=== PATIENT | male | born 1990 | race Caucasian/White ===

== ENCOUNTER 2021-01-24 10:49 | Emergency (ER) | payer BC, SELFPAY ==
--- NOTE | ~2021-01-24 | XR_ITS ---
EXAMINATION: XR chest 1V portable DATE: 01/24/2021 15:10 INDICATION: Chest pain. TECHNIQUE: A single frontal view of the chest was obtained. COMPARISON: None. FINDINGS: Calcified right lung nodules and calcified right hilar lymph nodes are consistent with old granulomatous disease. No pleural effusion or pneumothorax. The heart size is normal. IMPRESSION: 1. No acute cardiopulmonary disease. Reviewed, dictated and finalized at location A.
[2021-01-24 10:58] VITALS: BP 169/99; PULSE 107; RESP 14; TEMP 36.3; O2SAT 99
[2021-01-24 12:41] VITALS: BP 179/99; PULSE 114; RESP 18; O2SAT 98
[2021-01-24] MEDS: LORazepam INJ (*CRX) 2 MG/ML VIAL IV PUSH (14:00)
[2021-01-24] MEDS: HALOPERIDOL LACTATE 5 MG/ML VIAL 10 MG IV PUSH ×2 (14:00→20:38)
--- NOTE | 2021-01-24 14:01 | PC.NURSE ---
Unable to scan patient/meds for administration due to computer error.
--- NOTE | 2021-01-24 14:10 | ED.PSYCH ---
HPI - Psych General Chief Complaint: Psychiatric Symptoms <Pancho Peacock MD - Last Filed: 01/29/21 11:20> Stated Complaint: manic, anxious, pain all over <Pancho Peacock MD - Last Filed: 01/29/21 11:20> Time Seen by Provider: 01/24/21 13:07 <Pancho Peacock MD - Last Filed: 01/29/21 11:20> Source: patient <Pancho Peacock MD - Last Filed: 01/29/21 11:20> Mode of arrival: EMS <Pancho Peacock MD - Last Filed: 01/29/21 11:20> Limitations: clinical condition <Pancho Peacock MD - Last Filed: 01/29/21 11:20> History of Present Illness HPI Narrative: 30-year-old male Brought in by EMS for psych eval Apparently walked into police station and was behaving oddly He does not provide a very coherent history and intermittently seems to be very anxious and paranoid He tells me he takes Seroquel 100 mg a day and Haldol at an unknown dose and gabapentin totaling 900 mg a day which are prescribed by a physician that he knows as but does not care to know more than that, who he sees at his home which is either in [place] or someplace else His psych diagnoses are PTSD and anxiety and chronic pain due to a leg fracture Patient tells me that he decided to go on vacation but in looking at his prescriptions saw that there was something in the precautions about not operating heavy machinery and he was concerned that he would be in trouble if he was pulled over by the police who he does not trust so he stopped taking them It is unclear how long he has been off those meds He complains of things swimming around and a lot going on in his head, not sleeping for 4 nights, and total body pain He denies SI or HI He smokes medical marijuana and mentions that he is pleased that [place] he does not even need a medical card He drinks but will not say how much and uses no other drugs After discussing the possibility of restarting his Seroquel and Haldol and seeing if that calm things down for him he became quite agitated and aggressive, security had to be summoned, ultimately we were able to place an IV and he received 10 and 2 <Pancho Peacock MD - Last Filed: 01/29/21 11:20> Related Data Allergies/Adverse Reactions: Allergies Allergy/AdvReac Type Severity Reaction Status Date / Time cephalexin [From Keflex] Allergy Swelling Verified 01/24/21 20:38 <Pancho Peacock MD - Last Filed: 01/29/21 11:20> Review of Systems Review of Systems: ROS unobtainable: Yes unobtainable due to mental status <Pancho Peacock MD - Last Filed: 01/29/21 11:20> [facility] Social History Social History: Social History (Updated 01/24/21 @ 14:26 by Pancho Peacock MD) Alcohol intake: current Substance use type: marijuana <Pancho Peacock MD - Last Filed: 01/29/21 11:20> Exam Const: General: cooperative and alert <Pancho Peacokc MD - Last Filed: 01/29/21 11:20> Limitations: altered mental status and behavioral limitations <Pancho Peacock MD - Last Filed: 01/29/21 11:20> HENMT: Head: normal to inspection, normocephalic and atraumatic <Pancho Peacock MD - Last Filed: 01/29/21 11:20> Ears: external ears normal <Pancho Peacock MD - Last Filed: 01/29/21 11:20> General nose exam: no epistaxis <Pancho Peacock MD - Last Filed: 01/29/21 11:20> Eyes: Conjunctivae: conjunctivae normal <Pancho Peacock MD - Last Filed: 01/29/21 11:20> EOM: EOMs intact bilaterally <Pancho Peacock MD - Last Filed: 01/29/21 11:20> Neck: Neck: normal visual inspection, supple and no JVD <Pancho Peacock MD - Last Filed: 01/29/21 11:20> Resp: Effort & Inspection: normal respiratory effort <Pancho Peacock MD - Last Filed: 01/29/21 11:20> Auscultation: clear to auscultation bilaterally and other (BS =) <Pancho Peacock MD - Last Filed: 01/29/21 11:20> Cardio: Rate: regular rate <Pancho Peacock MD - Last Filed: 01/29/21 11:20> Rhythm: regular rhythm <Pancho Peacock MD - Last Filed: 01/29/21 11:20> Heart sounds: no murmurs
[2021-01-24 14:13] LABS: Basophils Absolute Auto 0.1 K/mm3 (0.0-0.1); Basophils Percent Auto 0.8 % (0.2-1.2); Eosinophils Percent Auto 0.2 % (0-4.4); Hematocrit 47.7 % (42.0-52.0); Hemoglobin 16.6 g/dL (14.0-18.0); Immature Granulocyte Absolute 0.04 K/mm3 (0.00-0.031); Immature Granulocyte Percent A 0.3 % (0-0.5); Lymphocytes Absolute Auto 1.88 K/mm3 (0.9-3.2); Lymphocytes Percent Auto 14.1 % (18.3-44.2); Mean Corpuscular HGB Conc 34.8 g/dl (32-36); Mean Corpuscular Hemoglobin 32.4 pg (26-34); Mean Corpuscular Volume 93.2 fl (80-100); Mean Platelet Volume 10.8 fl (7.4-10.4); Monocytes Absolute Auto 1.3 K/mm3 (0.1-0.6); Monocytes Percent Auto 9.8 % (2.6-8.5); Neutrophils Percent Auto 74.8 % (45.5-73.1); Platelet Count Result 251 k/mm3 (150-375); Red Blood Count 5.12 M/mm3 (4.6-6.20); Red Cell Distribution Width 13.6 % (11.5-14.5); White Blood Count 13.3 K/mm3 (4.5-10.0)
[2021-01-24 14:30] LABS: Ethanol < 10 mg/dL (<10)
[2021-01-24] MEDS: QUEtiapine FUMARATE XR 50 MG TAB.ER.24H 150 MG PO (14:57)
[2021-01-24 16:17] LABS: Add Urine Microscopic? YES; Appearance Urine Cloudy (Clear); Bilirubin Urine Negative (Negative); Blood Urine Negative (Negative); Color Urine Amber (Yellow); Glucose Urine UA Negative (Negative); Ketones Urine Negative (Negative); Leukocyte Esterase Ur Negative LEU/UL (Negative); Mucus Urine Few /lpf; Nitrate Urine Negative (Negative); Protein Urine 1+ mg/dL (Negative); Specific Grav Ur 1.019 (1.001-1.035); Squamous Epithelial Cell Urine Rare /hpf (Few)
[2021-01-24 16:30] LABS: Amphetamine Screen Urine Negative (Negative); Barbiturate Screen Urine Negative (Negative); Benzodiazepines Screen Urine Negative (Negative); Cannabinoid Screen Urine Positive (Negative); Cocaine Screen Urine Negative (Negative); Methadone Screen Urine Negative (Negative); Opiate Screen Urine Negative (Negative); Phencyclidine Screen Urine Negative (Negative)
[2021-01-24 16:36] LABS: EDCOVIDSCREEN Negative (Negative)
[2021-01-24 16:42] LABS: Alanine Aminotransferase 37 U/L (4-50); Albumin Level 3.9 g/dL (3.5-5.1); Alkaline Phosphatase 62 U/L (38-126); Anion Gap 7 mmol/L (8-16); Aspartate Amino Transferase 39 U/L (17-59); Bilirubin,Total 0.8 mg/dL (0.2-1.3); Blood Urea Nitrogen 7 mg/dL (9-20); Calcium 9.1 mg/dL (8.4-10.2); Carbon Dioxide 25 mmol/L (22-30); Chloride 105 mmol/L (98-107); Creatine Kinase 224 U/L (55-170); Estimated CRCL calculation 221 ml/min; Estimated Glomerular Filt Rate > 60; Glucose 102 mg/dL (65-110); Potassium 3.9 mmol/L (3.4-5.0); Sodium 137 mmol/L (137-145)
--- NOTE | 2021-01-24 20:15 | PC.NURSE ---
Attempted to update patient of status per his request, patient became very agitated and demanded to talk to the doctor and demanding to be transferred or sent home. Doctor informed of patient request to speak to him and patient came to the desk before doctor could go to the room with this nurse. Patient began yelling at the doctor and behavior became agressive. After asking patient to return to his room and calm down patient put his shoes on and was walking out the doors, patient continued to yell at staff, security arrival and patient did go back to his room after the doctor and security were walking him back. Matilda BLACKWELL encouraged the patient to get back in his bed and he did. Orders received per Dr. Peacock for haldol and pt was medicated for agitation and placed in hard restraints. Security remained at bedside.
--- NOTE | 2021-01-24 20:30 | PC.NURSE ---
Called [place] [employer] per DR. Peacock. PT yelling and screaming, cursing at staff at this time.
--- NOTE | 2021-01-24 23:30 | PC.NURSE ---
Assuming care of pt. Pt resting calmly restraints taken off. Pt apologizing for his previous behavior.
[2021-01-24 23:40] VITALS: BP 132/91; PULSE 92; RESP 18; O2SAT 98
[2021-01-25 02:25] VITALS: BP 127/83; PULSE 86; RESP 16; O2SAT 99
--- NOTE | 2021-01-25 04:38 | PC.NURSE ---
PT awake requesting food, pt requesting to be discharged at this time. Pt worried about getting hurt or hurting someone pt does not want anyone to get hurt. RN spoke with patient that no one wants to hurt him we only want him to get help. Pt is worried he will get lost in his head and not know what he is doing. Rn discussed with pt him staying and being transferred to another facility. Pt wants to get treatment when he goes home. RN discussed with pt that we can not discharge him without him being seen evaluated at a psych facility. Pt willing to stay a little longer and be transferred for treatment.
--- NOTE | 2021-01-25 04:46 | PC.NURSE ---
Voluntary paper work and copy of chart faxed to [facility] intake.
--- NOTE | 2021-01-25 06:04 | PC.NURSE ---
[facility] called they are accepting pt they need voluntary paperwork filled out again and facesheet sent to them and a nurse from their floor will call to get report.
--- NOTE | 2021-01-25 06:16 | PC.NURSE ---
Pt request RN to take IV out. RN did take IV out at this time.
[2021-01-25 06:17] VITALS: BP 140/85; PULSE 97; RESP 18; O2SAT 95
--- NOTE | 2021-01-25 06:17 | PC.NURSE ---
[facility]I faxed additional paperwork to [facility].
[2021-01-25] MEDS: hydrOXYzine HCL 25 MG TABLET PO (08:23)
--- NOTE | 2021-01-25 08:28 | PC.NURSE ---
After pt ate breakfast, he got dressed and stated that he wanted to go home. States that he has to take care of his dog and doesn't want to be admitted. States he feels better after the medicine he received here and doesn't feel like he needs to be admitted. 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 Pt with slightly pressured speech, endorses feeling anxious. RN explained that if he is wanted to go that Crisis would have to clear him, that we cannot just discharge him. Pt offered oral anxiety medication and agreed to take that while he waits to be re-evaluated. Pt A&Ox4, denies SI/HI, follows commands. Pt fidgety. RN asked if pt was to leave today if he had his medications at home to help prevent him from needing to be admitted. Pt reports disinterest in his medications, states it clearly says on the bottle not to drive or operate heavy machinery, and pt afraid that if he were to get pulled over that he would go [facility] for [facility] while on his medications. Crisis was called, waiting re-evaluation. Pt cooperative with plan at this time.
[2021-01-25 12:08] VITALS: BP 138/91; PULSE 113; RESP 17; O2SAT 98
== END 2021-01-25 12:10 ==
PROVIDERS: Emergency Medicine; Emergency Provider Emergency Medicine
DX: F30.9 Manic episode, unspecified (principal); F22 Delusional disorders; F41.9 Anxiety disorder, unspecified; F43.10 Post-traumatic stress disorder, unspecified; Z20.822 Contact with and (suspected) exposure to COVID-19; Z79.899 Other long term (current) drug therapy
CPT/HCPCS: 36415; 71045; 80053; 80307; 81001; 82550; 84443; 85025; 87426; 96365; 96375; 96376; 99285; A9270; C9803; J1630; J2060